=== PATIENT | female | born 1960 | race Caucasian/White ===

== ENCOUNTER 2017-10-21 19:29 | Emergency (ER) | payer BC ==
[~2017-10-21] VITALS: Ht 160 cm; Wt 107.1 kg
[2017-10-21 22:58] VITALS: BP 164/131
== END 2017-10-21 22:58 | disposition home or self-care (01) ==
LOC: EME 19:29
DX: S43.004A Unspecified dislocation of right shoulder joint, initial encounter (principal); W01.0XXA Fall on same level from slipping, tripping and stumbling without subsequent striking against object, initial encounter; Z87.891 Personal history of nicotine dependence
CPT/HCPCS: 73030; 99281; 99283